=== PATIENT | female | born 1980 | race Asian ===

== ENCOUNTER → 2017-03-02 | Outpatient (REF) ==
[~2017-03-02] MED LIST: CLIMARA 0.1 PATCH.W1 TD; DOXYCYCLINE 10100 MG PO; FERROUS SU325 MG/TAB PO; FLAGYL500 MG PO; GI COCKTAIL SUSP1 M1 PO; MOTRIN 600600 MG/TAB PO; MULTIVITAMIN FO1 CAP PO; NO HOME MEDICATIONS; NORCO 325 MG-51 TAB PO; NYSTATIN 100MU/M1 ML PO; PEPCID AC 10MG10 MG PO; PROBIOTIC FORMU1 CAP PO; PROMETHAZINE12.5 M5 PO; ZANTAC 150MG T150 MG PO; ZOFRAN 4MG T4 MG/TAB PO; ZOFRAN ODT4 MG PO
== END ==
LOC: WSOH 09:27
DX: Z02.89 Encounter for other administrative examinations (principal)

== ENCOUNTER → 2017-03-04 | Outpatient (REF) | LOC: WSOH 08:15 | DX: Z02.89 Encounter for other administrative examinations (principal) ==